=== PATIENT | male | born 1975 | race Caucasian/White ===

== ENCOUNTER 2017-07-26 05:22 | Emergency (ER) | payer SELFPAY ==
[2017-07-26 05:38] VITALS: RESP 16; TEMP 98.3
[2017-07-26 05:44] VITALS: BP 146/99; PULSE 60
--- NOTE | 2017-07-26 05:44 | C.PDOC ---
History Of Present Illness 42 year old male who presents to the ER with a complaint of intermittent right shoulder pain for the last few days that worsened today and caused the patient to wake up with pain. Denies weakness, numbness, or any specific injury. Time Seen by Provider: 07/26/17 05:37 Chief Complaint (Nursing): Upper Extremity Problem/Injury History Per: Patient History/Exam Limitations: no limitations Onset/Duration Of Symptoms: Days Current Symptoms Are (Timing): Still Present Exacerbating Factor(s): Strenuous Use Of Affected Area Recent travel outside of the [place]: No Past Medical History Reviewed: Historical Data, Nursing Documentation, Vital Signs Vital Signs: Last Vital Signs Temp 98.3 F 07/26/17 05:30 Pulse 60 07/26/17 05:43 Resp 16 07/26/17 05:43 BP 146/99 H 07/26/17 05:43 Pulse Ox 100 07/26/17 05:46 - Medical History PMH: No Chronic Diseases Surgical History: No Surg Hx Family History: States: Unknown Family Hx - Social History Hx Alcohol Use: Yes Hx Substance Use: Yes - Immunization History Hx Tetanus Toxoid Vaccination: No Hx Influenza Vaccination: No Hx Pneumococcal Vaccination: No Review Of Systems Musculoskeletal: Positive for: Shoulder Pain. Negative for: Neck Pain Neurological: Negative for: Weakness, Numbness Physical Exam - Physical Exam Appears: Non-toxic, No Acute Distress Skin: Normal Color, Warm, Dry Head: Atraumatic, Normacephalic Oral Mucosa: Moist Neck: Normal, Supple Extremity: Normal ROM (x4), Tenderness (Localized over right shoulder), No Deformity, No Swelling Pulses: Left Radial: Normal, Right Radial: Normal Neurological/Psych: Oriented x3, Normal Speech, Normal Cognition ED Course And Treatment O2 Sat by Pulse Oximetry: 100 (Room air) Pulse Ox Interpretation: Normal Disposition Counseled Patient/Family Regarding: Diagnosis - Disposition Referrals: [facility] [Outside] Disposition: HOME/ ROUTINE Disposition Time: 05:41 Condition: STABLE Additional Instructions: warm compress Prescriptions: Ibuprofen [Motrin Tab] 800 mg PO Q8 #20 tab Instructions: Tendinitis (ED) Forms: [facility] ([place]) - POA Present On Arrival: None - Clinical Impression Clinical Impression: Tendinitis - Scribe Statement The provider has reviewed the documentation as recorded by the Scribe Brett Parks All medical record entries made by the Scribe were at my direction and personally dictated by me. I have reviewed the chart and agree that the record accurately reflects my personal performance of the history, physical exam, medical decision making, and the department course for this patient. I have also personally directed, reviewed, and agree with the discharge instructions and disposition.
[2017-07-26 05:45] VITALS: O2SAT 100
== END 2017-07-26 05:53 | disposition home or self-care (01) ==
LOC: C.ER 05:22
DX: M75.91 Shoulder lesion, unspecified, right shoulder (principal)